=== PATIENT | female | born 1930 | race Caucasian/White ===

== ENCOUNTER → 2016-06-12 | Outpatient (CLI) | payer OTHER ==
[~2016-06-12] MED LIST: COLACE100 MG PO; EVISTA; EVISTA PO; IBUPROFEN 600600 M1 PO; MOBIC7.5 MG PO; NAPROSYN250 MG PO; NORCO 5-325 TA1 EACH PO; PERCOCET 5-3251 EACH PO; TUMS PO; VALIUM5 MG PO
== END ==
LOC: NUC 06-09 08:33
DX: N91.2 Amenorrhea, unspecified (principal); M85.80 Other specified disorders of bone density and structure, unspecified site; M81.0 Age-related osteoporosis without current pathological fracture

== ENCOUNTER 2016-10-04 09:53 | Emergency (ER) | payer OTHER ==
[~2016-10-04] VITALS: Ht 167.6 cm; Wt 65.8 kg
--- NOTE | ~2016-10-04 | EKG ---
[place] [address] [address] [facility] [place] [address] ELECTROCARDIOGRAM REPORT Name: JOSE ANTONIO TORRES Room #: [facility]P [facility] [id number] Admission: 10/04/16 Attend Phys: Discharge: 10/04/16 Date of : 32 Report #: [id number] THIS REPORT FOR: //name// [facility] ED Test Date: 2016-10-04 Test Time: 09:57:05 Pat Name: JOSE ANTONIO TORRES Department: Room: Gender: F [employer]: jevangelina : 1930 Requested By: Magda Carver Order Number: [id number] MD: Dayday Lay Measurements Intervals Blanch Rate: 98 P: 81 MA: 143 QRS: 51 QRSD: 79 T: 62 QT: 355 QTc: 454 Interpretive Statements Sinus rhythm Low voltage, precordial leads Compared to ECG 10/20/2015 09:40:54 No significant change was found Electronically Signed On 10-06-2016 8:38:54 CDT by Dayday Lay [email or web address] <ELECTRONICALLY SIGNED> By: Dayday Lay MD, [facility] 10/06/16 0838 D: [id number] Dayday Lay MD, FAC /EPI
[2016-10-04] MEDS ORDERED: VITAMIN D2000 UNIT PO (10:16)
[2016-10-04] MEDS ORDERED: MYSOLINE50 MG PO (10:18)
[2016-10-04] MEDS ORDERED: CITRACAL + BON1 EACH PO (10:30)
[2016-10-04 10:45] LABS: HEMATOCRIT 41.8 % (37.0-47.0); HEMOGLOBIN 14.5 gm/dL (12.0-15.0); MCH 31.3 pg (26.0-34.0); MCHC 34.8 g/dL (28.0-37.0); MCV 90.2 fL (80.0-100.0); PLATELET COUNT 147 thou/uL (150-400); RBC 4.64 mil/uL (4.20-5.00); RDW 13.5 % (10.5-14.5); WBC 5.4 thou/uL (4.0-11.0)
[2016-10-04 10:51] LABS: MANUAL DIFF YES
[2016-10-04 10:52] LABS: URINE BILIRUBIN NEGATIVE (Negative); URINE BLOOD TRACE (Negative); URINE COLOR YELLOW; URINE GLUCOSE-RANDOM* NEGATIVE (Negative); URINE KETONES NEGATIVE (Negative); URINE NITRITE NEGATIVE (Negative); URINE PROTEIN (DIPSTICK) NEGATIVE (Negative); URINE SPECIFIC GRAVITY <= 1.005 (1.003-1.035); URINE UROBILINOGEN 0.2 E.U./dl (0.2-1.0)
[2016-10-04 10:55] LABS: ANION GAP 9 mmol/L (7-16); BUN 15 mg/dL (7-18); CALCIUM 9.4 mg/dL (8.5-10.1); CHLORIDE 101 mmol/L (98-107); CO2 29 mmol/L (21-32); CREATININE 0.8 mg/dL (0.6-1.0); GLUCOSE 116 mg/dL (74-106); POTASSIUM 3.9 mmol/L (3.5-5.1); SODIUM 139 mmol/L (136-145)
[2016-10-04 10:57] LABS: PROTIME 10.4 Seconds (9.3-11.4)
[2016-10-04 11:04] LABS: ALBUMIN 3.8 g/dL (3.4-5.0); ALKALINE PHOSPHATASE 82 U/L (46-116); SGOT 21 U/L (15-37); SGPT 20 U/L (30-65); TOTAL BILIRUBIN 0.4 mg/dL (<0.1-1.0); TOTAL PROTEIN 7.7 g/dL (6.4-8.2); TROPONIN-I < 0.04 ng/mL (<0.04-0.07)
[2016-10-04 11:08] LABS: SQUAMOUS 0-3 Few /LPF (0-3)
[2016-10-04 11:09] LABS: BACTERIA 1-9 Few /HPF (None Seen); CASTS None Seen /LPF (None Seen); CRYSTALS None Seen /LPF (None Seen); URINE RBC None Seen /HPF (0-2); URINE WBC 0-5 Rare /HPF (0-5)
[2016-10-04 11:30] LABS: ABSOLUTE NEUTROPHILS 2.8 thou/uL (1.4-8.2); PLATELET ESTIMATE NORMAL; TOTAL CELL COUNT 100
== END 2016-10-04 11:25 | disposition home or self-care (01) ==
LOC: ER 09:53
PROVIDERS: Physician Assistant
DX: R00.2 Palpitations (principal); R42 Dizziness and giddiness; Z90.710 Acquired absence of both cervix and uterus; Z88.2 Allergy status to sulfonamides

== ENCOUNTER 2016-11-08 12:38 | Emergency (ER) | payer OTHER ==
[~2016-11-08] VITALS: Ht 167.6 cm; Wt 63.5 kg
[~2016-11-08 12:38] MED LIST changes: +CITRACAL + BON1 EACH PO; +MYSOLINE50 MG PO; +VITAMIN D2000 UNIT PO
[2016-11-08 14:04] LABS: ABSOLUTE NEUTROPHILS 4.1 thou/uL (1.4-8.2); BASOPHILS 0.9 % (0.0-2.0); EOSINOPHILS 0.5 % (0.0-3.0); HEMATOCRIT 41.6 % (37.0-47.0); HEMOGLOBIN 14.3 gm/dL (12.0-15.0); LYMPHOCYTES 17.6 % (24.0-44.0); MCH 31.2 pg (26.0-34.0); MCHC 34.5 g/dL (28.0-37.0); MCV 90.3 fL (80.0-100.0); MONOCYTES 10.5 % (1.0-8.0); PLATELET COUNT 113 thou/uL (150-400); POLYS 70.5 % (36.0-66.0); RDW 13.2 % (10.5-14.5); WBC 5.8 thou/uL (4.0-11.0)
[2016-11-08 14:06] LABS: MANUAL DIFF NO
[2016-11-08 14:08] LABS: ANION GAP 9 mmol/L (7-16); BUN 13 mg/dL (7-18); CALCIUM 9.5 mg/dL (8.5-10.1); CHLORIDE 101 mmol/L (98-107); CO2 26 mmol/L (21-32); CREATININE 0.6 mg/dL (0.6-1.0); GLUCOSE 120 mg/dL (74-106); POTASSIUM 3.7 mmol/L (3.5-5.1); SODIUM 136 mmol/L (136-145)
[2016-11-08 14:16] LABS: ALKALINE PHOSPHATASE 96 U/L (46-116); DIRECT BILIRUBIN < 0.1 mg/dL (<0.1-0.3); SGOT 22 U/L (15-37); SGPT 20 U/L (30-65); TOTAL BILIRUBIN 0.4 mg/dL (<0.1-1.0); TOTAL PROTEIN 7.7 g/dL (6.4-8.2); TROPONIN-I < 0.04 ng/mL (<0.04-0.07)
[2016-11-08 14:52] LABS: PLATELET ESTIMATE NORMAL
[2016-11-08 15:13] LABS: URINE BILIRUBIN NEGATIVE (Negative); URINE BLOOD TRACE (Negative); URINE COLOR YELLOW; URINE GLUCOSE-RANDOM* NEGATIVE (Negative); URINE KETONES NEGATIVE (Negative); URINE PROTEIN (DIPSTICK) NEGATIVE (Negative); URINE SPECIFIC GRAVITY 1.015 (1.003-1.035); URINE UROBILINOGEN 0.2 E.U./dl (0.2-1.0)
[2016-11-08 15:14] LABS: URINE LEUKOCYTES-REFLEX TRACE (Negative)
== END 2016-11-08 17:01 | disposition home or self-care (01) ==
LOC: ER 12:38
PROVIDERS: Emergency Medicine
DX: R42 Dizziness and giddiness (principal); T42.6X5A Adverse effect of other antiepileptic and sedative-hypnotic drugs, initial encounter; R11.2 Nausea with vomiting, unspecified; Z90.710 Acquired absence of both cervix and uterus; Z88.2 Allergy status to sulfonamides; Y92.89 Other specified places as the place of occurrence of the external cause

== ENCOUNTER 2017-05-03 11:17 | Emergency (ER) | payer OTHER ==
[~2017-05-03] VITALS: Ht 167.6 cm; Wt 59.0 kg
[2017-05-03] MEDS ORDERED: TIZANIDINE HCL2 M1 PO (11:47)
[2017-05-03] MEDS ORDERED: VALIUM2 MG PO (12:58)
[2017-05-03] MEDS ORDERED: MEDROLDOSEPACK PO (12:58)
[2017-05-03 13:32] VITALS: BP 138/64
== END 2017-05-03 13:34 | disposition home or self-care (01) ==
LOC: ER 11:17
DX: M19.90 Unspecified osteoarthritis, unspecified site (principal); M54.2 Cervicalgia; Z88.2 Allergy status to sulfonamides